=== PATIENT | female | born 1970 | race Caucasian/White ===

== ENCOUNTER → 2017-01-22 | Outpatient (CLI) | payer BC ==
[~2017-01-22] MED LIST: PEDICHW50 PO; VITAMIN B PO; [UNRECOGNIZED DRUG - OTHER] PO
--- NOTE | 2017-01-23 07:56 | MAMMOGRAPHY REPORT ---
BILATERAL DIGITAL DIAGNOSTIC MAMMOGRAM TOMOSYNTHESIS WITH CAD AND TARGETED RIGHT ULTRASOUND: 7 CLINICAL HISTORY: 46 old woman presents for bilateral screening mammography and also to follow-up a benign appearing lobulated low-density 15 mm mass in the upper outer quadrant of the right breast. Patient has a history of prior benign biopsy in the 8:00 right breast. TECHNIQUE: Bilateral breast tomosynthesis in addition to standard 2D mammography was performed. Curr ent study was also evaluated with a Computer Aided Detection (CAD) system. COMPARISON: Comparison is made to exams dated: 01/12/2016 ultrasound, 01/12/2016 mammogram, 07/17/2015 ultrasound, 07/17/2015 mammogram, 01/11/2015 mammogram, and 01/11/2015 ultrasound biopsy - [facility]. BREAST COMPOSITION: The tissue of both breasts is heterogeneously dense, which may obscure small ma sses. FINDINGS: There is a stable ribbon shaped metallic biopsy marker in the upper outer posterior right breast. Only seen on the tomosynthesis images is a low density lobulated and circumscribed 15 mm ma ss. This appears stable in size dating back to at least December 2014 and with 2 years of stability is most likely benign. No new suspicious mass, architectural distortion or cluster of microcalcificat ions is seen bilaterally. Targeted ultrasound was performed in the lateral right breast with particular attention to the 9:00 axis in the area of palpable cyst seen on the 01/12/2016 ultrasound. No discrete solid or cystic ma ss is currently seen. IMPRESSION: ACR BI-RADS CATEGORY 2: BENIGN, TARGETED ULTRASOUND ACR BI-RADS CATEGORY 2: BENIGN 1. Stable mammographic appearance of a low-density lobulated and circumscribed 15 mm mass in the la teral right breast, only seen on the cc tomosynthesis images (slice 24), that is unchanged dating ba ck to December 2014. With 2 years of stability this confirms benignity. No sonographic correlate or s uspicious mass was seen in the lateral right breast on ultrasound. 2. Stable mammographic appearance of the left breast, without mammographic evidence of malignancy. 3. Recommend routine bilateral mammography in one year. Approximately 10% of breast cancers are not detected with mammography. A negative mammographic repor t should not delay biopsy if a clinically suggestive mass is present. Geovanna Fernandes M.D. ay/:01/22/2017 14:55:40 Board Certified Orthodontist: iRma Francois, [facility] letter sent: Normal / BI-RADS Code: ACR BI-RADS Category 2: Benign Ultrasound BI-RADS: ACR BI-RADS Category 2: Benign
== END | disposition home or self-care (01) ==
LOC: C.MAMM 14:07
PROVIDERS: ATTEND Physician Assistant Medical
DX: Z09 Encounter for follow-up examination after completed treatment for conditions other than malignant neoplasm (principal); N63 Unspecified lump in breast

== ENCOUNTER → 2018-01-14 | Outpatient (CLI) | payer OTHER ==
--- NOTE | 2018-01-14 13:36 | DIAGNOSTIC IMAGING REPORT ---
KUB CLINICAL HISTORY: R32 Urinary [id number] Urinary [id number] nephrolithiasis COMPARISON STUDY: 07/12/2016 FINDINGS: There is a moderate amount of stool within the colon. There is no pathologic bowel dilatation. There is a lumbar levoscoliosis. Multiple calcifications project over the left kidney, consistent with calculi. The largest measures 4.6 mm. The right kidney is obscured by overlying bowel gas and fecal material. IMPRESSION: Left-sided nephrolithiasis similar to the prior study. Nondiagnostic evaluation of the right kidney due to overlying enteric contents Electronically signed by: Mayur Gifford M.D. 01/14/2018 1:34 PM Dictated Date/Time: 01/14/2018 1:33 PM
== END | disposition home or self-care (01) ==
LOC: C.RAD 13:18
PROVIDERS: ATTEND Urology
DX: N20.0 Calculus of kidney (principal); R35.0 Frequency of micturition; R32 Unspecified urinary incontinence

== ENCOUNTER → 2018-02-04 | Outpatient (CLI) | payer OTHER ==
--- NOTE | 2018-02-05 14:56 | MAMMOGRAPHY REPORT ---
BILATERAL DIGITAL SCREENING MAMMOGRAM TOMOSYNTHESIS WITH CAD: 02/04/2018 CLINICAL HISTORY: Routine screening. Patient has no complaints. TECHNIQUE: Breast tomosynthesis in addition to standard 2D mammography was performed. Current study was also evaluated with a Computer Aided Detection (CAD) system. COMPARISON: Comparison is made to exams dated: 01/22/2017 mammogram, 01/12/2016 mammogram, 07/17/2015 ma mmogram, 01/11/2015 mammogram, 01/09/2015 mammogram, and 12/23/2014 mammogram - [facility] ter. BREAST COMPOSITION: The tissue of both breasts is heterogeneously dense, which may obscure small mas ses. FINDINGS: No suspicious masses, calcifications, or areas of architectural distortion are noted in ei ther breast. There has been no significant interval change compared to prior exams. A biopsy marker clip is again noted within the right 9:00 posterior breast. IMPRESSION: ACR BI-RADS CATEGORY 2: BENIGN There is no mammographic evidence of malignancy. A 1 year screening mammogram is recommended. The pa tient will receive written notification of the results. Approximately 10% of breast cancers are not detected with mammography. A negative mammographic report should not delay biopsy if a clinically suggestive mass is present. Caron Wright M.D. ah/:02/04/2018 15:42:40 Medicine Teacher: Elsa ANTHONY(Jv)([place])([place]), [facility] letter sent: Normal 1/2 BI-RADS Code: ACR BI-RADS Category 2: Benign
== END | disposition home or self-care (01) ==
LOC: C.MAMM 13:44
PROVIDERS: ATTEND Physician Assistant Medical
DX: Z12.31 Encounter for screening mammogram for malignant neoplasm of breast (principal)